=== PATIENT | female | born 1965 | race Caucasian/White ===

== ENCOUNTER 2019-08-12 07:37 | Day surgery (SDC) | payer BC ==
[2019-08-09 11:04] LABS: CARBON DIOXIDE,CO2 26.3 mmol/L (21.0-32.0); POTASSIUM,K 4.1 mmol/L (3.5-5.1)
[~2019-08-12 07:37] MED LIST: Glycopyrrolate 0.2 MG/ML SDV ONE; Ketorolac 30 MG/ML SDV ONE; Lactated Ringers 1,000 ML IV SCH; Lidocaine 2% 5 ML SDV ONE; Midazolam 1 MG/ML 2 ML SDV ONE; Ondansetron 4 MG/2 ML SDV ONE; Propofol 200 MG/20 ML SDV ONE; Rocuronium 100 MG/10 ML Syringe ONE; Sugammadex Sodium 200 MG/2 ML VIAL ONE; fentaNYL 250 MCG/5 ML SDV ONE
--- NOTE | 2019-08-12 08:10 | PCM.PREANE ---
Preanesthetic Assessment - Anesthesia/Transfusion/Family Hx Anesthesia History: Prior Anesthesia Without Reaction Other Type of Anesthesia Reaction Comment: States did have nausea and vomited on ride home from hospital after last OR Transfusion History: Prior Transfusion Without Reaction Intubation History: Unknown - Review of Systems General: No Symptoms Pulmonary: No Symptoms Cardiovascular: No Symptoms Gastrointestinal: No Symptoms Neurological: No Symptoms Other: Reports: None - Physical Assessment Height: 5 ft 8 in Weight: 119.748 kg - Lab Values: Laboratory Last Values WBC 4.94 K/uL (4.0-11.0) 08/09/19 09:55 RBC 4.31 M/uL (4.30-5.90) 08/09/19 09:55 Hgb 12.7 g/dL (12.0-16.0) 08/09/19 09:55 Hct 38.5 % (36.0-46.0) 08/09/19 09:55 MCV 89.3 fL (80.0-98.0) 08/09/19 09:55 MCH 29.5 pg (27.0-32.0) 08/09/19 09:55 MCHC 33.0 g/dL (31.0-37.0) 08/09/19 09:55 RDW Std Deviation 45.5 fl (28.0-62.0) 08/09/19 09:55 RDW Coeff of Oz 14 % (11.0-15.0) 08/09/19 09:55 Plt Count 214 K/uL (150-400) 08/09/19 09:55 MPV 11.40 fL (7.40-12.00) 08/09/19 09:55 Nucleated RBC % 0.0 /100WBC 08/09/19 09:55 Nucleated RBCs # 0 K/uL 08/09/19 09:55 Sodium 139 mmol/L (136-145) 08/09/19 09:55 Potassium 4.1 mmol/L (3.5-5.1) 08/09/19 09:55 Chloride 103 mmol/L (98-107) 08/09/19 09:55 Carbon Dioxide 26.3 mmol/L (21.0-32.0) 08/09/19 09:55 BUN 33 mg/dL (7.0-18.0) H 08/09/19 09:55 Creatinine 1.2 mg/dL (0.6-1.0) H 08/09/19 09:55 Est Cr Clr Drug Dosing 54.06 mL/min 08/09/19 09:55 Estimated GFR (MDRD) 46.8 ml/min 08/09/19 09:55 Glucose 110 mg/dL (74-106) H 08/09/19 09:55 Calcium 9.2 mg/dL (8.5-10.1) 08/09/19 09:55 HCG, Qual NEGATIVE (NEG) 08/09/19 09:55 SARS Virus RNA (PCR) NEGATIVE (NEGATIVE) 08/09/19 10:15 Blood Type O POSITIVE 08/09/19 09:55 Antibody Screen NEGATIVE 08/09/19 09:55 - Allergies Allergies/Adverse Reactions: Allergies Allergy/AdvReac Type Severity Reaction Status Date / Time No Known Allergies Allergy Verified 08/08/19 11:23 PreAnesthesia Questionnaire HEENT History: Reports: Other (See Below) Other HEENT History: wears glasses, has very dry eyes due to Lupus Cardiovascular History: Reports: Hypertension 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: Musculoskeletal History: Reports: Other (See Below) Other Musculoskeletal History: has Plantar Facitis Neurological History: Reports: Other (See Below) Other Neuro History: hx of motion sickness Psychiatric History: Reports: Depression Endocrine/Metabolic History: Reports: Hypothyroidism, Obesity/BMI 30+ Immunologic History: Reports: Other (See Below) Other Immunologic History: discoid Lupus Dermatologic History: Reports: Other (See Below) Other Dermatologic History: Discoid Lupus Erythematosus, hx of cold sores - Past Surgical History Head Surgeries/Procedures: Reports: None Female Surgical History: Reports: Other (See Below) Other Female Surgeries/Procedures: TOVT Neurological Surgical History: Reports: Lumbar Spine, Spinal Fusion Musculoskeletal Surgical History: Reports: ORIF Other Musculoskeletal Surgeries/Procedures:: right TIB-FIB (has hardware) - SUBSTANCE USE Smoking Status *Q: Never Smoker Recreational Drug Use History: No - HOME MEDS Home Medications: Home Meds Acyclovir 800 mg PO ASDIRECTED PRN 02/02/18 [History] Cholecalciferol (Vitamin D3) [Vitamin D3] 5,000 unit PO DAILY 02/02/18 [History] Escitalopram Oxalate 20 mg PO DAILY 02/02/18 [History] Lisinopril 10 mg PO QAM 02/02/18 [History] hydroCHLOROthiazide [Hydrochlorothiazide] 25 mg PO QAM 02/02/18 [History] Cream Base No. 9 [Hrt Base] 1 injection IM ASDIRECTED 08/08/19 [History] Cyanocobalamin (Vitamin B12) [Vitamin B12] 1,000 mg PO DAILY 08/08/19 [History] Levothyroxine [Synthroid] 50 mcg PO QAM 08/08/19 [History] [place]-3/DHA/Epa/Fish Oil [[place]-3 Fish Oil 1,200 MG Sfgl] 2,400 mg PO DAILY 06/23 [History] Progesterone,Micronized [Prometrium] 100 mg PO BEDTIME 08/08/19 [History] - CURRENT (IN HOUSE) MEDS Current Meds: Current Medications Lactated Ringer's (Ringers, Lactated) 1,000 mls @ 125 mls/hr IV ASDIRECTED SHIREEN Discontinued Medications Fentanyl (Sublimaze) Confirm Administered Dose 250 mcg .ROUTE .STK-MED ONE Stop: 08/12/19 07:03 Glycopyrrolate (Robinul) Confirm Administered Dose 0.2 mg .ROUTE .STK-MED ONE Stop: 08/12/19 07:03 Ketorolac Tromethamine (Toradol) Confirm Administered Dose 30 mg .ROUTE .STK- MED ONE Stop: 08/12/19 07:03 Lidocaine (Xylocaine-Mpf 2%) Confirm Administered Dose 5 ml .ROUTE .STK-MED ONE Stop: 08/12/19 07:03 Midazolam HCl (Versed 1 Mg/Ml) Confirm Administered Dose 2 mg .ROUTE .STK-MED ONE Stop: 08/12/19 07:03 Ondansetron HCl (Zofran) Confirm Administered Dose 4 mg .ROUTE .STK-MED ONE Stop: 08/12/19 07:03 Propofol (Diprivan 20 Ml) Confirm Administered Dose 200 mg .ROUTE .STK-MED ONE Stop: 08/12/19 07:03 Rocuronium Joanna (Zemuron) Confirm Administered Dose 100 mg .ROUTE .STK-MED ONE Stop: 08/12/19 07:03 Sugammadex Sodium (Bridion) Confirm Administered Dose 200 mg .ROUTE .STK-MED ONE Stop: 08/12/19 07:04
[2019-08-12] MEDS ORDERED: fentaNYL 100 MCG/2 ML SDV IVPUSH PRN (08:27)
[2019-08-12] MEDS ORDERED: Acetaminophen 1,000 MG in Premix Bag 1 BAG IV PRN (08:27)
--- NOTE | 2019-08-12 08:29 | PCM.PREANE ---
Preanesthetic Assessment - Anesthesia/Transfusion/Family Hx Anesthesia History: Prior Anesthesia Without Reaction Other Type of Anesthesia Reaction Comment: States did have nausea and vomited on ride home from hospital after last OR Family History of Anesthesia Reaction: No Transfusion History: Prior Transfusion Without Reaction Intubation History: Unknown - Physical Assessment NPO Status Date: 08/12/19 NPO Status Time: 00:05 Height: 1.73 m Weight: 119.748 kg ASA Class: 2 - Lab Values: Laboratory Last Values WBC 4.94 K/uL (4.0-11.0) 08/09/19 09:55 RBC 4.31 M/uL (4.30-5.90) 08/09/19 09:55 Hgb 12.7 g/dL (12.0-16.0) 08/09/19 09:55 Hct 38.5 % (36.0-46.0) 08/09/19 09:55 MCV 89.3 fL (80.0-98.0) 08/09/19 09:55 MCH 29.5 pg (27.0-32.0) 08/09/19 09:55 MCHC 33.0 g/dL (31.0-37.0) 08/09/19 09:55 RDW Std Deviation 45.5 fl (28.0-62.0) 08/09/19 09:55 RDW Coeff of Oz 14 % (11.0-15.0) 08/09/19 09:55 Plt Count 214 K/uL (150-400) 08/09/19 09:55 MPV 11.40 fL (7.40-12.00) 08/09/19 09:55 Nucleated RBC % 0.0 /100WBC 08/09/19 09:55 Nucleated RBCs # 0 K/uL 08/09/19 09:55 Sodium 139 mmol/L (136-145) 08/09/19 09:55 Potassium 4.1 mmol/L (3.5-5.1) 08/09/19 09:55 Chloride 103 mmol/L (98-107) 08/09/19 09:55 Carbon Dioxide 26.3 mmol/L (21.0-32.0) 08/09/19 09:55 BUN 33 mg/dL (7.0-18.0) H 08/09/19 09:55 Creatinine 1.2 mg/dL (0.6-1.0) H 08/09/19 09:55 Est Cr Clr Drug Dosing 54.06 mL/min 08/09/19 09:55 Estimated GFR (MDRD) 46.8 ml/min 08/09/19 09:55 Glucose 110 mg/dL (74-106) H 08/09/19 09:55 Calcium 9.2 mg/dL (8.5-10.1) 08/09/19 09:55 HCG, Qual NEGATIVE (NEG) 08/09/19 09:55 SARS Virus RNA (PCR) NEGATIVE (NEGATIVE) 08/09/19 10:15 Blood Type O POSITIVE 08/09/19 09:55 Antibody Screen NEGATIVE 08/09/19 09:55 - Allergies Allergies/Adverse Reactions: Allergies Allergy/AdvReac Type Severity Reaction Status Date / Time No Known Allergies Allergy Verified 08/08/19 11:23 - Acknowledgements Anesthesia Type Planned: General Anesthesia Pt an Appropriate Candidate for the Planned Anesthesia: Yes Alternatives and Risks of Anesthesia Discussed w Pt/Guardian: Yes Pt/Guardian Understands and Agrees with Anesthesia Plan: Yes PreAnesthesia Questionnaire HEENT History: Reports: Other (See Below) Other HEENT History: wears glasses, has very dry eyes due to Lupus Cardiovascular History: Reports: Hypertension 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: Musculoskeletal History: Reports: Other (See Below) Other Musculoskeletal History: has Plantar Facitis Neurological History: Reports: Other (See Below) Other Neuro History: hx of motion sickness Psychiatric History: Reports: Depression Endocrine/Metabolic History: Reports: Hypothyroidism, Obesity/BMI 30+ Immunologic History: Reports: Other (See Below) Other Immunologic History: discoid Lupus Dermatologic History: Reports: Other (See Below) Other Dermatologic History: Discoid Lupus Erythematosus, hx of cold sores - Past Surgical History Head Surgeries/Procedures: Reports: None Female Surgical History: Reports: Other (See Below) Other Female Surgeries/Procedures: TOVT Neurological Surgical History: Reports: Lumbar Spine, Spinal Fusion Musculoskeletal Surgical History: Reports: ORIF Other Musculoskeletal Surgeries/Procedures:: right TIB-FIB (has hardware) - SUBSTANCE USE Smoking Status *Q: Never Smoker Recreational Drug Use History: No - HOME MEDS Home Medications: Home Meds Acyclovir 800 mg PO ASDIRECTED PRN 02/02/18 [History] Cholecalciferol (Vitamin D3) [Vitamin D3] 5,000 unit PO DAILY 02/02/18 [History] Lisinopril 10 mg PO QAM 02/02/18 [History] hydroCHLOROthiazide [Hydrochlorothiazide] 25 mg PO QAM 02/02/18 [History] Cream Base No. 9 [Hrt Base] 1 injection IM ASDIRECTED 08/08/19 [History] Cyanocobalamin (Vitamin B12) [Vitamin B12] 1,000 mg PO DAILY 08/08/19 [History] Levothyroxine [Synthroid] 50 mcg PO QAM 08/08/19 [History] [place]-3/DHA/Epa/Fish Oil [[place]-3 Fish Oil 1,200 MG Sfgl] 2,400 mg PO DAILY 06/23 [History] Progesterone,Micronized [Prometrium] 100 mg PO BEDTIME 08/08/19 [History] - CURRENT (IN HOUSE) MEDS Current Meds: Current Medications Lactated Ringer's (Ringers, Lactated) 1,000 mls @ 125 mls/hr IV ASDIRECTED SHIREEN Discontinued Medications Fentanyl (Sublimaze) Confirm Administered Dose 250 mcg .ROUTE .STK-MED ONE Stop: 08/12/19 07:03 Glycopyrrolate (Robinul) Confirm Administered Dose 0.2 mg .ROUTE .STK-MED ONE Stop: 08/12/19 07:03 Ketorolac Tromethamine (Toradol) Confirm Administered Dose 30 mg .ROUTE .STK- MED ONE Stop: 08/12/19 07:03 Lidocaine (Xylocaine-Mpf 2%) Confirm Administered Dose 5 ml .ROUTE .STK-MED ONE Stop: 08/12/19 07:03 Midazolam HCl (Versed 1 Mg/Ml) Confirm Administered Dose 2 mg .ROUTE .STK-MED ONE Stop: 08/12/19 07:03 Ondansetron HCl (Zofran) Confirm Administered Dose 4 mg .ROUTE .STK-MED ONE Stop: 08/12/19 07:03 Propofol (Diprivan 20 Ml) Confirm Administered Dose 200 mg .ROUTE .STK-MED ONE Stop: 08/12/19 07:03 Rocuronium [place] (Zemuron) Confirm Administered Dose 100 mg .ROUTE .STK-MED ONE Stop: 08/12/19 07:03 Sugammadex Sodium (Bridion) Confirm Administered Dose 200 mg .ROUTE .STK-MED ONE Stop: 08/12/19 07:04
[2019-08-12] MEDS ORDERED: Sodium Chloride 0.9% 20 ML ONE (09:15)
[2019-08-12] MEDS ORDERED: ceFAZolin 1 GM Vial ONE (09:15)
[2019-08-12] MEDS ORDERED: HYDROmorphone 2 MG/ML Syringe ONE ×2 (10:04→11:28)
[2019-08-12] MEDS ORDERED: Fluorescein 5 ML Vial ONE (10:13)
[2019-08-12] MEDS ORDERED: Furosemide 40 MG/4 ML VIAL ONE (11:16)
[2019-08-12] MEDS ORDERED: Morphine 4 MG/ML Syringe IVPUSH PRN (12:07)
[2019-08-12] MEDS ORDERED: Promethazine 25 MG/ML SDV IM PRN (12:07)
[2019-08-12] MEDS ORDERED: Ondansetron 4 MG/2 ML SDV IVPUSH PRN (12:07)
[2019-08-12] MEDS ORDERED: Ketorolac 30 MG/ML SDV IVPUSH ONE (12:07)
[2019-08-12] MEDS ORDERED: Acetaminophen/oxyCODONE 325-5 MG Tab PO PRN ×2 (12:07)
--- NOTE | 2019-08-12 12:07 | PCM.OPNOTE ---
- General Post-Op/Procedure Note Date of Surgery/Procedure: 08/12/19 Operative Procedure(s): total vaginal hysterectomy with cystoscopy and anterior colporrhaphy. Findings: 3rd degree uterine prolapse, 3rd degree cystocele, cervical polyp. on cystoscopy , copious flow of bright green urine from bilateral ureteral orifices, no evidence of trauma to bladder mucosa. Pre Op Diagnosis: symptomatic uterovaginal prolapse. Post-Op Diagnosis: Same Primary Surgeon: Pauline Heard Anesthesia Provider: Oleg Pierce Acid Supervisor: Jose Enrique Jerez Pathology: uterus Fluid Replacement, Intraop: 1,900 Output, Urine Amount: 100 EBL in mLs: 100 Complications: None known. Condition: Good
[2019-08-12] MEDS ORDERED: Mineral Oil/Petrolatum Ophth Oint 3.5 GM Tube EYEBOTH PRN (12:11)
--- NOTE | 2019-08-12 12:34 | PCM.POSTAN ---
POST ANESTHESIA ASSESSMENT - MENTAL STATUS Mental Status: Alert - VITAL SIGNS Vital Signs: Last Vital Signs Temp 36.9 C 08/12/19 11:47 Pulse 77 08/12/19 12:17 Resp 12 08/12/19 12:17 BP 130/74 08/12/19 12:17 Pulse Ox 94 L 08/12/19 12:17 - RESPIRATORY Respiratory Status: Respiratory Rate WNL - CARDIOVASCULAR CV Status: Pulse Rate WNL - GASTROINTESTINAL GI Status: No Symptoms - POST OP HYDRATION Hydration Status: Adequate & Stable
--- NOTE | 2019-08-12 14:34 | OR ---
SURGEON: Pauline Heard M.D. DATE OF PROCEDURE: 08/12/2019 PREOPERATIVE DIAGNOSIS: Incomplete uterovaginal prolapse with cystocele. POSTOPERATIVE DIAGNOSIS: Incomplete uterovaginal prolapse with cystocele. PROCEDURE: Vaginal hysterectomy with anterior colporrhaphy. PRIMARY SURGEON: Pauline Heard MD SYSTEMS QA ANALYST: Lars Barger MD ANESTHESIA: General endotracheal. FLUIDS: 1700 mL of crystalloid. ESTIMATED BLOOD LOSS: 100 mL. URINE OUTPUT: 100 mL. FINDINGS: Third-degree uterine prolapse, third-degree cystocele. Endocervical polyp noted. Normal tubes and ovaries noted. On cystoscopy after IV fluorescein and Lasix had been given, there was copious flow of bright green urine from bilateral ureteral orifices. There was also no evidence of any trauma to the bladder mucosa. COMPLICATIONS: None known. DISPOSITION: Stable to Recovery. BRIEF HISTORY: This is a 54-year-old female. She has a history of a prior midurethral sling. She has noticed more difficulty with voiding as well as more urgency, a bulge coming from her vagina and pressure. Upon evaluation, she was noted to have a third-degree cystocele, third-degree uterine prolapse. She was emptying her bladder completely on postvoid residual, and she had normal bladder capacity, however, significant bladder spasms were noted. She desires to proceed with a vaginal hysterectomy retaining her tubes and ovaries as well as anterior colporrhaphy to correct the cystocele along with cystoscopy for evaluation of complications. Risks were discussed including bleeding; infection; injury to bowel, bladder, blood vessels, ureters, or other organs; risk of thromboembolic event; risk of anesthesia; risk related to the anterior colporrhaphy including new onset of stress incontinence as well as recurrence of 30% were discussed. Understanding all of these issues, she does desire to proceed. DESCRIPTION OF PROCEDURE: With the patient in dorsal lithotomy position, under adequate general endotracheal anesthesia, the perineum and vagina were prepped with Betadine and draped in usual fashion for a vaginal surgery. SCDs were in place. Castano catheter had been placed, and she received 2 g of Ancef IV preoperatively. After an appropriate time-out was held, bimanual examination revealed an 8-week size midposition uterus, third-degree cystocele, third-degree uterine prolapse with a large endocervical polyp. Weighted speculum was placed posteriorly. The cervix was grasped with a Angle tenaculum. The cervicovaginal junction was circumscribed using electrocautery. The vagina was pushed away. The posterior cul-de-sac was sharply entered. Kika-Auvard speculum was placed posteriorly. The anterior cul-de-sac was entered with sharp and blunt dissection and the right angle retractor was placed into the anterior cul-de-sac. The uterosacral ligaments were doubly clamped, cut, and ligated using a simple tie of 2-0 Polysorb followed by Abigail ligature of 2-0 Polysorb. The lower portion of the uterosacral ligaments was then doubly clamped, cut, and ligated using a simple ligature of 2-0 Polysorb followed by the Abigail ligature of 2-0 Polysorb. Two additional pedicles were taken on the right and the left until the utero-ovarian ligament was identified, doubly clamped, and cut. A free tie followed by a Abigail ligature of 2-0 Polysorb was utilized. These were retained for inspection. The uterus was delivered via the vaginal cavity. The retained tubes and ovaries appeared normal and there was no evidence of any bleeding from the pedicles. The sutures were then released. The retained uterosacral ligament ligatures were then ligated to the vaginal apices bilaterally. There was a small area of bleeding just above the right uterosacral ligament, which was clamped with a Abigail clamp and ligated. All the pedicles being completely hemostatic, the attention was then turned to the anterior vagina. Approximately 2 cm cephalad from the urethral meatus, an incision was made with a 15 blade scalpel after hydrodissection was performed. The anterior vaginal wall was opened through the muscularis layer and the edges of the mucosal layer were grasped with Allis clamps. The muscularis layer was dissected free from the overlying mucosal layer and then reapproximated in the midline using multiple interrupted mattress sutures of 2-0 Polysorb. The vaginal mucosa was slightly trimmed. The incision was closed using a running lock suture of 0 Polysorb proceeding from the apex of the anterior repair to the cuff. The cuff was then closed continuing with the same suture in a running locked fashion. The Castano catheter was then removed, and after all the instruments had been removed from the vagina, IV fluorescein and Lasix had been given. Cystoscopy was performed. There was excellent visualization of the bladder. There was no evidence of any trauma to the bladder mucosa and there was copious flow of bright green urine from bilateral ureteral orifices. This being completed, a new catheter was placed. Speculum was placed in the vagina. The cuff was hemostatic. The vagina was packed with vaginal packing instilled with water-based lubricant. Final sponge, needle, and instrument counts were reported as correct. There were no known complications. The patient was transferred to Recovery in good condition. ANETA / ALLEN /[id number]
[2019-08-12] MEDS ORDERED: Phenol 1.4% Oral Spray 177 ML Bottle MUCMEM PRN (17:14)
--- NOTE | 2019-08-12 17:14 | PCM.SURGPN ---
- General Info Date of Service: 08/12/19 Date of Surgery/Procedure: 08/12/19 POD#: 0 Post-Op Diagnosis: uterovaginal prolapse. Functional Status: Reports: Pain Controlled, Tolerating Diet - Review of Systems General: Reports: No Symptoms HEENT: Reports: No Symptoms Pulmonary: Reports: Other (O2 sats drop when she is dozing along with severe snoring, sleep apnea type symptoms. ) Cardiovascular: Reports: No Symptoms Gastrointestinal: Reports: No Symptoms Genitourinary: Reports: No Symptoms Musculoskeletal: Reports: No Symptoms Skin: Reports: No Symptoms Neurological: Reports: No Symptoms Psychiatric: Reports: No Symptoms - Patient Data Vitals - Most Recent: Last Vital Signs Temp 36.3 C 08/12/19 12:44 Pulse 75 08/12/19 12:44 Resp 15 08/12/19 12:44 BP 110/70 08/12/19 12:44 Pulse Ox 95 08/12/19 12:44 Weight - Most Recent: 119.748 kg I&O - Last 24 Hours: Intake & Output 08/12/19 08/12/19 08/12/19 06:59 14:59 22:59 Intake Total 3800 Output Total 400 Balance 3400 Med Orders - Current: Current Medications Hydrochlorothiazide (Hydrochlorothiazide) 25 mg PO QAM SHIREEN Lactated Ringer's (Ringers, Lactated) 1,000 mls @ 125 mls/hr IV ASDIRECTED SHIREEN Last Admin: 08/12/19 08:30 Dose: 125 mls/hr Acetaminophen 1,000 mg/ Premix 100 mls @ 400 mls/hr IV Q6H PRN PRN Reason: Pain Last Admin: 08/12/19 12:13 Dose: 400 mls/hr Ketorolac Tromethamine (Toradol) 15 mg IVPUSH Q6H PRN PRN Reason: Pain (severe 7-10) Stop: 08/17/19 12:07 Levothyroxine Sodium (Levothyroxine) 50 mcg PO ACBREAKFAST SHIREEN Lisinopril (Prinivil) 10 mg PO QAM [facility] Mineral Oil/White Petrolatum (Lacri-Lube S.O.P Oint) 1 gm EYEBOTH Q1H PRN PRN Reason: Dry Eyes Morphine Sulfate (Morphine) 4 mg IVPUSH Q2H PRN PRN Reason: Pain (severe 7-10) Ondansetron HCl (Zofran) 4 mg IVPUSH Q6H PRN PRN Reason: Nausea/Vomiting Oxycodone/Acetaminophen (Percocet 325-5 Mg) 1 tab PO Q4H PRN PRN Reason: Pain (moderate 4-6) Oxycodone/Acetaminophen (Percocet 325-5 Mg) 2 tab PO Q4H PRN PRN Reason: Pain (moderate 4-6) Promethazine HCl (Phenergan) 25 mg IM Q6H PRN PRN Reason: Nausea/Vomiting Discontinued Medications Cefazolin Sodium (Ancef) Confirm Administered Dose 2 gm .ROUTE .STK-MED ONE Stop: 08/12/19 09:16 Fentanyl (Sublimaze) Confirm Administered Dose 250 mcg .ROUTE .STK-MED ONE Stop: 08/12/19 07:03 Fentanyl (Sublimaze) 50 mcg IVPUSH Q5M PRN PRN Reason: Pain Fluorescein Sodium (Ak-Fluor) Confirm Administered Dose 5 ml .ROUTE .STK-MED ONE Stop: 08/12/19 10:14 Furosemide (Lasix) Confirm Administered Dose 40 mg .ROUTE .STK-MED ONE Stop: 08/12/19 11:17 Glycopyrrolate (Robinul) Confirm Administered Dose 0.2 mg .ROUTE .STK-MED ONE Stop: 08/12/19 07:03 Hydromorphone HCl (Dilaudid) Confirm Administered Dose 2 mg .ROUTE .STK-MED ONE Stop: 08/12/19 10:05 Hydromorphone HCl (Dilaudid) Confirm Administered Dose 2 mg .ROUTE .STK-MED ONE Stop: 08/12/19 11:29 Sodium Chloride (Normal Saline) Confirm Administered Dose 20 mls @ as directed .ROUTE .STK-MED ONE Stop: 08/12/19 09:16 Acetaminophen (Ofirmev) Confirm Administered Dose 100 mls @ as directed .ROUTE .STK-MED ONE Stop: 08/12/19 12:10 Ketorolac Tromethamine (Toradol) Confirm Administered Dose 30 mg .ROUTE .STK- MED ONE Stop: 08/12/19 07:03 Ketorolac Tromethamine (Toradol) 30 mg IVPUSH ONETIME ONE Stop: 08/12/19 12:08 Lidocaine (Xylocaine-Mpf 2%) Confirm Administered Dose 5 ml .ROUTE .STK-MED ONE Stop: 08/12/19 07:03 Midazolam HCl (Versed 1 Mg/Ml) Confirm Administered Dose 2 mg .ROUTE .STK-MED ONE Stop: 08/12/19 07:03 Ondansetron HCl (Zofran) Confirm Administered Dose 4 mg .ROUTE .[employer]-MED ONE Stop: 08/12/19 07:03 Propofol (Diprivan 20 Ml) Confirm Administered Dose 200 mg .ROUTE .STK-MED ONE Stop: 08/12/19 07:03 Rocuronium [place] (Zemuron) Confirm Administered Dose 100 mg .ROUTE .STJ [employer] R [place]-MED ONE Stop: 08/12/19 07:03 Sugammadex Sodium (Bridion) Confirm Administered Dose 200 mg .ROUTE .STJ & R [place]-MED ONE Stop: 08/12/19 07:04 - Exam General: Alert, Oriented HEENT: Pupils Equal Lungs: Clear to Auscultation, Normal Respiratory Effort Cardiovascular: Regular Rate, Regular Rhythm GI/Abdominal Exam: Soft, Non-Tender, No Mass Extremities: Non-Tender, No Pedal Edema Psy/Mental Status: Alert, Normal Affect, Normal Mood Sepsis Event Note - Focused Exam Vital Signs: Vital Signs Temp Pulse Resp BP Pulse Ox 08/12/19 12:44 36.3 C 75 15 110/70 95 08/12/19 12:17 77 12 130/74 94 L 08/12/19 12:12 74 12 126/74 94 L 08/12/19 12:07 82 12 107/77 95 08/12/19 12:02 86 13 107/72 96 08/12/19 11:57 79 12 117/74 93 L 08/12/19 11:52 80 12 108/61 95 08/12/19 11:47 36.9 C 81 16 116/42 L 94 L 08/12/19 08:00 36.6 C 98 15 107/74 96 Date Exam was Performed: 08/12/19 Time Exam was Performed: 17:09 - Problem List & Annotations (1) Incomplete uterovaginal prolapse SNOMED Code(s): 012006897 Code(s): N81.2 - INCOMPLETE UTEROVAGINAL PROLAPSE Status: Acute Current Visit: Yes (2) Sleep apnea in adult SNOMED Code(s): 35491885 Code(s): G47.30 - SLEEP APNEA, UNSPECIFIED Status: Acute Current Visit: Yes (3) Hypertension SNOMED Code(s): 79511202 Code(s): I10 - ESSENTIAL (PRIMARY) HYPERTENSION Status: Acute Current Visit: Yes Qualifiers: Hypertension type: essential hypertension Qualified Code(s): I10 - Essential (primary) hypertension - Problem List Review Problem List Initiated/Reviewed/Updated: Yes - My Orders Last 24 Hours: Active Orders 24 hr Category Date Time Status Patient Status [ADT] Routine ADT 08/12/19 12:07 Active Antiembolic Devices [RC] PER UNIT ROUTINE Care 08/12/19 06:25 Active Antiembolic Devices [RC] PER UNIT ROUTINE Care 08/12/19 12:08 Active CPAP Adult [RT BiPAP/CPAP] [RC] ASDIRECTED Care 08/12/19 15:10 Active Notify Provider Intake and Out [RC] ASDIRECTED Care 08/12/19 12:07 Active Notify Provider Vital Signs [RC] ASDIRECTED Care 08/12/19 12:07 Active Overnight Pulse Oximetry [RC] Click to Edit Care 08/12/19 14:23 Active Oxygen Therapy [RC] ASDIRECTED Care 08/12/19 12:07 Active RT End Tidal CO2 Monitoring [RC] ASDIRECTED Care 08/12/19 14:24 Active RT Incentive Spirometry [RC] Q2HWA Care 08/12/19 12:07 Active Up With Assistance [RC] PER UNIT ROUTINE Care 08/12/19 12:07 Active Up ad [place] [RC] PER UNIT ROUTINE Care 08/12/19 12:07 Active Urinary Catheter Removal [RC] Per Unit Routine Care 08/12/19 12:07 Active Vital Signs [RC] PER UNIT ROUTINE Care 08/12/19 12:07 Active Regular Diet [DIET] Diet 08/12/19 Dinner Active BASIC METABOLIC PANEL,BMP [CHEM] AM Lab 08/13/19 05:11 Ordered CBC WITH AUTO DIFF [HEME] AM Lab 08/13/19 05:11 Ordered Acetaminophen [Ofirmev] 1,000 mg Med 08/12/19 08:27 Active Premix Bag 1 bag IV Q6H Acetaminophen/oxyCODONE [Percocet 325-5 MG] Med 08/12/19 12:07 Active 1 tab PO Q4H PRN Acetaminophen/oxyCODONE [Percocet 325-5 MG] Med 08/12/19 12:07 Active 2 tab PO Q4H PRN Ketorolac [Toradol] Med 08/12/19 12:07 Active 15 mg IVPUSH Q6H PRN Lactated Ringers [Ringers, Lactated] 1,000 ml Med 08/12/19 06:30 Active IV ASDIRECTED Levothyroxine Med 08/13/19 07:30 Active 50 mcg PO ACBREAKFAST Mineral Oil/Petrolatum Oint [Lacri-Lube S.O.P Oint] Med 08/12/19 12:11 Active 1 gm EYEBOTH Q1H PRN Morphine Med 08/12/19 12:07 Active 4 mg IVPUSH Q2H PRN Ondansetron [Zofran] Med 08/12/19 12:07 Active 4 mg IVPUSH Q6H PRN Promethazine [Phenergan] Med 08/12/19 12:07 Active 25 mg IM Q6H PRN hydroCHLOROthiazide Med 08/13/19 09:00 Active 25 mg PO QAM lisinopriL [Prinivil] Med 08/13/19 09:00 Active 10 mg PO QAM Peripheral IV Discontinue [OM.PC] Routine Oth 08/12/19 12:07 Ordered Pulse Oximetry Continuous Monitoring [OM.PC] Routine Oth 08/12/19 14:23 Ordered Remove Vaginal Packing [OM.PC] Per Unit Routine Oth 08/12/19 12:08 Ordered SCD [Sequential Compression Device] [OM.PC] Routine Oth 08/12/19 06:25 Ordered Sequential Compression Device [OM.PC] Per Unit Routine Oth 08/12/19 12:07 Ordered Resuscitation Status Routine Resus Stat 08/12/19 12:07 Ordered Medication Orders Hydrochlorothiazide (Hydrochlorothiazide) 25 mg PO QAM SHIREEN Lactated Ringer's (Ringers, Lactated) 1,000 mls @ 125 mls/hr IV ASDIRECTED SHIREEN Last Admin: 08/12/19 08:30 Dose: 125 mls/hr Acetaminophen 1,000 mg/ Premix 100 mls @ 400 mls/hr IV Q6H PRN PRN Reason: Pain Last Admin: 08/12/19 12:13 Dose: 400 mls/hr Ketorolac Tromethamine (Toradol) 15 mg IVPUSH Q6H PRN PRN Reason: Pain (severe 7-10) Stop: 08/17/19 12:07 Levothyroxine Sodium (Levothyroxine) 50 mcg PO ACBREAKFAST SHIREEN Lisinopril (Prinivil) 10 mg PO QAM SHIREEN Mineral Oil/White Petrolatum (Lacri-Lube S.O.P Oint) 1 gm EYEBOTH Q1H PRN PRN Reason: Dry Eyes Morphine Sulfate (Morphine) 4 mg IVPUSH Q2H PRN PRN Reason: Pain (severe 7-10) Ondansetron HCl (Zofran) 4 mg IVPUSH Q6H PRN PRN Reason: Nausea/Vomiting Oxycodone/Acetaminophen (Percocet 325-5 Mg) 1 tab PO Q4H PRN PRN Reason: Pain (moderate 4-6) Oxycodone/Acetaminophen (Percocet 325-5 Mg) 2 tab PO Q4H PRN PRN Reason: Pain (moderate 4-6) Promethazine HCl (Phenergan) 25 mg IM Q6H PRN PRN Reason: Nausea/Vomiting - Assessment Assessment (Free Text/Narrative):: POD#1 after TVH anterior colporrhaphy, Pain is adequately controlled, she denies any shortness of breath or chest pain, however Oxygen levels drop to the 70s when sleeping, vital are stable, no cough or dyspnea. Oxygen saturation is normal when awake and alert, did not tolerate CPAP due to sore throat from intubation. - Plan Plan (Free Text/Narrative):: Continue CPAP for sleeping, continuous pulse oxymetry, will schedule sleep study for out patient (Passed [facility] questionnaire) Use heating pad and low dose ketorolac for pain (cr slightly elevated on admission) Continue postop op care Operative findings reviewed
[2019-08-12] MEDS: Ketorolac 30 MG/ML SDV IVPUSH PRN (17:50)
[2019-08-13] MEDS: Ketorolac 30 MG/ML SDV IVPUSH PRN ×2 (01:03→09:17)
[2019-08-13 06:15] LABS: CARBON DIOXIDE,CO2 28.1 mmol/L (21.0-32.0); POTASSIUM,K 3.8 mmol/L (3.5-5.1)
[2019-08-13] MEDS ORDERED: Levothyroxine 25 MCG Tab PO SCH (07:30)
--- NOTE | 2019-08-13 07:45 | PCM48HPAN ---
Post Anesthesia Note - EVALUATION WITHIN 48HRS OF ANESTHETIC Vital Signs in Normal Range: Yes Patient Participated in Evaluation: Yes Respiratory Function Stable: Yes Airway Patent: Yes Cardiovascular Function Stable: Yes Hydration Status Stable: Yes Pain Control Satisfactory: Yes Nausea and Vomiting Control Satisfactory: Yes Mental Status Recovered: Yes Vital Signs: Last Vital Signs Temp 36.4 C 08/13/19 04:00 Pulse 84 08/13/19 04:00 Resp 16 08/13/19 04:00 BP 119/56 L 08/13/19 04:00 Pulse Ox 98 08/13/19 06:00 - COMMENTS/OBSERVATIONS Free Text/Narrative:: Denies any complaints. O2 sats 95-96% on RA. States could not tolerate CPAP but feeling better today.
[2019-08-13] MEDS ORDERED: Docusate Sodium 100 MG Cap PO PRN (07:55)
[2019-08-13] MEDS ORDERED: Lisinopril 10 MG Tab PO SCH (09:00)
[2019-08-13] MEDS ORDERED: Hydrochlorothiazide 25 MG Tab PO SCH (09:00)
--- NOTE | 2019-08-13 09:05 | PCM.SURGPN ---
- General Info Date of Service: 08/13/19 Date of Surgery/Procedure: 08/12/19 POD#: 1 Post-Op Diagnosis: incomplete uterovaginal prolapse Functional Status: Reports: Pain Controlled, Tolerating Diet, Ambulating, Urinating, Other (slept well without CPAP) - Review of Systems General: Reports: No Symptoms HEENT: Reports: No Symptoms Pulmonary: Reports: No Symptoms Cardiovascular: Reports: No Symptoms Gastrointestinal: Reports: No Symptoms Genitourinary: Reports: No Symptoms Musculoskeletal: Reports: No Symptoms Skin: Reports: No Symptoms Neurological: Reports: No Symptoms Psychiatric: Reports: No Symptoms - Patient Data Vitals - Most Recent: Last Vital Signs Temp 36.4 C 08/13/19 04:00 Pulse 84 08/13/19 04:00 Resp 16 08/13/19 04:00 BP 119/56 L 08/13/19 04:00 Pulse Ox 98 08/13/19 06:00 Weight - Most Recent: 119.748 kg Lab Results Last 24 Hrs: Laboratory Results - last 24 hr 08/13/19 08/13/19 Range/Units 05:38 05:38 WBC 9.56 (4.0-11.0) K/uL RBC 3.83 L (4.30-5.90) M/uL Hgb 11.3 L (12.0-16.0) g/dL Hct 34.7 L (36.0-46.0) % MCV 90.6 (80.0-98.0) fL MCH 29.5 (27.0-32.0) pg MCHC 32.6 (31.0-37.0) g/dL RDW Std Deviation 45.6 (28.0-62.0) fl RDW Coeff of Oz 14 (11.0-15.0) % Plt Count 166 (150-400) K/uL MPV 11.30 (7.40-12.00) fL Neut % (Auto) 79.0 (48.0-80.0) % Lymph % (Auto) 13.3 L (16.0-40.0) % [place] % (Auto) 7.4 (0.0-15.0) % Eos % (Auto) 0.2 (0.0-7.0) % Baso % (Auto) 0.1 (0.0-1.5) % Neut # (Auto) 7.6 H (1.4-5.7) K/uL Lymph # (Auto) 1.3 (0.6-2.4) K/uL [place] # (Auto) 0.7 (0.0-0.8) K/uL Eos # (Auto) 0.0 (0.0-0.7) K/uL Baso # (Auto) 0.0 (0.0-0.1) K/uL Nucleated RBC % 0.0 /100WBC Nucleated RBCs # 0 K/uL Sodium 137 (136-145) mmol/L Potassium 3.8 (3.5-5.1) mmol/L Chloride 102 (98-107) mmol/L Carbon Dioxide 28.1 (21.0-32.0) mmol/L BUN 28 H (7.0-18.0) mg/dL Creatinine 1.3 H (0.6-1.0) mg/dL Est Cr Clr Drug Dosing 49.90 mL/min Estimated GFR (MDRD) 42.7 ml/min Glucose 116 H (74-106) mg/dL Calcium 7.7 L (8.5-10.1) mg/dL Med Orders - Current: Current Medications Docusate Sodium (Colace) 100 mg PO BID PRN PRN Reason: Constipation Hydrochlorothiazide (Hydrochlorothiazide) 25 mg PO QAM [facility] Lactated Ringer's (Ringers, Lactated) 1,000 mls @ 125 mls/hr IV ASDIRECTED SHIREEN Last Admin: 08/12/19 08:30 Dose: 125 mls/hr Acetaminophen 1,000 mg/ Premix 100 mls @ 400 mls/hr IV Q6H PRN PRN Reason: Pain Last Admin: 08/12/19 12:13 Dose: 400 mls/hr Ketorolac Tromethamine (Toradol) 15 mg IVPUSH Q6H PRN PRN Reason: Pain (severe 7-10) Stop: 08/17/19 12:07 Last Admin: 08/13/19 01:03 Dose: 15 mg Levothyroxine Sodium (Levothyroxine) 50 mcg PO ACBREAKFAST [facility] Lisinopril (Prinivil) 10 mg PO QAM [facility] Mineral Oil/White Petrolatum (Lacri-Lube S.O.P Oint) 1 gm EYEBOTH Q1H PRN PRN Reason: Dry Eyes Morphine Sulfate (Morphine) 4 mg IVPUSH Q2H PRN PRN Reason: Pain (severe 7-10) Ondansetron HCl (Zofran) 4 mg IVPUSH Q6H PRN PRN Reason: Nausea/Vomiting Oxycodone/Acetaminophen (Percocet 325-5 Mg) 1 tab PO Q4H PRN PRN Reason: Pain (moderate 4-6) Oxycodone/Acetaminophen (Percocet 325-5 Mg) 2 tab PO Q4H PRN PRN Reason: Pain (moderate 4-6) Phenol/Menthol (Chloraseptic Throat [place]) 0 ml MUCMEM Q2H PRN PRN Reason: sore throat Promethazine HCl (Phenergan) 25 mg IM Q6H PRN PRN Reason: Nausea/Vomiting Discontinued Medications Cefazolin Sodium (Ancef) Confirm Administered Dose 2 gm .ROUTE .STK-MED ONE Stop: 08/12/19 09:16 Fentanyl (Sublimaze) Confirm Administered Dose 250 mcg .ROUTE .STK-MED ONE Stop: 08/12/19 07:03 Fentanyl (Sublimaze) 50 mcg IVPUSH Q5M PRN PRN Reason: Pain Fluorescein Sodium (Ak-Fluor) Confirm Administered Dose 5 ml .ROUTE .STK-MED ONE Stop: 08/12/19 10:14 Furosemide (Lasix) Confirm Administered Dose 40 mg .ROUTE .STK-MED ONE Stop: 08/12/19 11:17 Glycopyrrolate (Robinul) Confirm Administered Dose 0.2 mg .ROUTE .STK-MED ONE Stop: 08/12/19 07:03 Hydromorphone HCl (Dilaudid) Confirm Administered Dose 2 mg .ROUTE .STK-MED ONE Stop: 08/12/19 10:05 Hydromorphone HCl (Dilaudid) Confirm Administered Dose 2 mg .ROUTE .STK-MED ONE Stop: 08/12/19 11:29 Sodium Chloride (Normal Saline) Confirm Administered Dose 20 mls @ as directed .ROUTE .STK-MED ONE Stop: 08/12/19 09:16 Acetaminophen (Ofirmev) Confirm Administered Dose 100 mls @ as directed .ROUTE .STK-MED ONE Stop: 08/12/19 12:10 Ketorolac Tromethamine (Toradol) Confirm Administered Dose 30 mg .ROUTE .STK- MED ONE Stop: 08/12/19 07:03 Ketorolac Tromethamine (Toradol) 30 mg IVPUSH ONETIME ONE Stop: 08/12/19 12:08 Last Admin: 08/12/19 20:12 Dose: Not Given Lidocaine (Xylocaine-Mpf 2%) Confirm Administered Dose 5 ml .ROUTE .STK-MED ONE Stop: 08/12/19 07:03 Midazolam HCl (Versed 1 Mg/Ml) Confirm Administered Dose 2 mg .ROUTE .STK-MED ONE Stop: 08/12/19 07:03 Ondansetron HCl (Zofran) Confirm Administered Dose 4 mg .ROUTE .STK-MED ONE Stop: 08/12/19 07:03 Propofol (Diprivan 20 Ml) Confirm Administered Dose 200 mg .ROUTE .STK-MED ONE Stop: 08/12/19 07:03 Rocuronium [place] (Zemuron) Confirm Administered Dose 100 mg .ROUTE .STK-MED ONE Stop: 08/12/19 07:03 Sugammadex Sodium (Bridion) Confirm Administered Dose 200 mg .ROUTE .STK-MED ONE Stop: 08/12/19 07:04 - Exam General: Alert HEENT: Pupils Equal Neck: Supple Lungs: Clear to Auscultation, Normal Respiratory Effort Cardiovascular: Regular Rate, Regular Rhythm GI/Abdominal Exam: Normal Bowel Sounds, Soft, Non-Tender, No Distention Extremities: Non-Tender, No Pedal Edema Skin: Warm, Dry, Intact Neurological: No New Focal Deficit Psy/Mental Status: Alert Sepsis Event Note - Evaluation Sepsis Screening Result: No Definite Risk - Focused Exam Vital Signs: Vital Signs Temp Pulse Resp BP Pulse Ox 08/13/19 06:00 98 08/13/19 05:00 95 08/13/19 04:00 36.4 C 84 16 119/56 L 97 08/13/19 03:00 98 08/13/19 02:00 93 L 08/13/19 01:00 96 08/13/19 00:00 37.6 C 91 18 119/72 94 L 08/12/19 23:00 95 Date Exam was Performed: 08/13/19 Time Exam was Performed: 09:01 - Problem List & Annotations (1) Incomplete uterovaginal prolapse SNOMED Code(s): 272619160 Code(s): N81.2 - INCOMPLETE UTEROVAGINAL PROLAPSE Status: Acute Current Visit: Yes (2) Sleep apnea in adult SNOMED Code(s): 90832560 Code(s): G47.30 - SLEEP APNEA, UNSPECIFIED Status: Acute Current Visit: Yes (3) Hypertension SNOMED Code(s): 30365244 Code(s): I10 - ESSENTIAL (PRIMARY) HYPERTENSION Status: Acute Current Visit: Yes Qualifiers: Hypertension type: essential hypertension Qualified Code(s): I10 - Essential (primary) hypertension - Problem List Review Problem List Initiated/Reviewed/Updated: Yes - My Orders Last 24 Hours: Active Orders 24 hr Category Date Time Status Patient Status [ADT] Routine ADT 08/12/19 12:07 Active CPAP Adult [RT BiPAP/CPAP] [RC] ASDIRECTED Care 08/12/19 15:10 Active Notify Provider Intake and Out [RC] ASDIRECTED Care 08/12/19 12:07 Active Notify Provider Vital Signs [RC] ASDIRECTED Care 08/12/19 12:07 Active Oxygen Therapy [RC] ASDIRECTED Care 08/12/19 12:07 Active RT End Tidal CO2 Monitoring [RC] ASDIRECTED Care 08/12/19 14:24 Active RT Incentive Spirometry [RC] Q2HWA Care 08/12/19 12:07 Active Telemetry Monitoring [Cardiac Monitoring] [RC] Q8H Care 08/12/19 15:43 Active Up With Assistance [RC] PER UNIT ROUTINE Care 08/12/19 12:07 Active Up ad Ulcero [RC] PER UNIT ROUTINE Care 08/12/19 12:07 Active Urinary Catheter Removal [RC] Per Unit Routine Care 08/12/19 12:07 Active Vital Signs [RC] PER UNIT ROUTINE Care 08/12/19 12:07 Active Regular Diet [DIET] Diet 08/12/19 Dinner Active Acetaminophen [Ofirmev] 1,000 mg Med 08/12/19 08:27 Active Premix Bag 1 bag IV Q6H Acetaminophen/oxyCODONE [Percocet 325-5 MG] Med 08/12/19 12:07 Active 1 tab PO Q4H PRN Acetaminophen/oxyCODONE [Percocet 325-5 MG] Med 08/12/19 12:07 Active 2 tab PO Q4H PRN Docusate Sodium [Colace] Med 08/13/19 07:55 Active 100 mg PO BID PRN Ketorolac [Toradol] Med 08/12/19 12:07 Active 15 mg IVPUSH Q6H PRN Levothyroxine Med 08/13/19 07:30 Active 50 mcg PO ACBREAKFAST Mineral Oil/Petrolatum Oint [Lacri-Lube S.O.P Oint] Med 08/12/19 12:11 Active 1 gm EYEBOTH Q1H PRN Morphine Med 08/12/19 12:07 Active 4 mg IVPUSH Q2H PRN Ondansetron [Zofran] Med 08/12/19 12:07 Active 4 mg IVPUSH Q6H PRN Phenol [Chloraseptic Throat [place]] Med 08/12/19 17:14 Active 0 ml MUCMEM Q2H PRN Promethazine [Phenergan] Med 08/12/19 12:07 Active 25 mg IM Q6H PRN hydroCHLOROthiazide Med 08/13/19 09:00 Active 25 mg PO QAM lisinopriL [Prinivil] Med 08/13/19 09:00 Active 10 mg PO QAM Peripheral IV Discontinue [OM.PC] Routine Oth 08/12/19 12:07 Ordered Pulse Oximetry Continuous Monitoring [OM.PC] Routine Oth 08/12/19 14:23 Ordered Remove Vaginal Packing [OM.PC] Per Unit Routine Oth 08/12/19 12:08 Ordered Sequential Compression Device [OM.PC] Per Unit Routine Oth 08/12/19 12:07 Ordered Resuscitation Status Routine Resus Stat 08/12/19 12:07 Ordered Medication Orders Docusate Sodium (Colace) 100 mg PO BID PRN PRN Reason: Constipation Hydrochlorothiazide (Hydrochlorothiazide) 25 mg PO QAM SHIREEN Lactated Ringer's (Ringers, Lactated) 1,000 mls @ 125 mls/hr IV ASDIRECTED SHIREEN Last Admin: 08/12/19 08:30 Dose: 125 mls/hr Acetaminophen 1,000 mg/ Premix 100 mls @ 400 mls/hr IV Q6H PRN PRN Reason: Pain Last Admin: 08/12/19 12:13 Dose: 400 mls/hr Ketorolac Tromethamine (Toradol) 15 mg IVPUSH Q6H PRN PRN Reason: Pain (severe 7-10) Stop: 08/17/19 12:07 Last Admin: 08/13/19 01:03 Dose: 15 mg Admin: 08/12/19 17:50 Dose: 15 mg Levothyroxine Sodium (Levothyroxine) 50 mcg PO ACBREAKFAST SHIREEN Lisinopril (Prinivil) 10 mg PO QAM SHIREEN Mineral Oil/White Petrolatum (Lacri-Lube S.O.P Oint) 1 gm EYEBOTH Q1H PRN PRN Reason: Dry Eyes Morphine Sulfate (Morphine) 4 mg IVPUSH Q2H PRN PRN Reason: Pain (severe 7-10) Ondansetron HCl (Zofran) 4 mg IVPUSH Q6H PRN PRN Reason: Nausea/Vomiting Oxycodone/Acetaminophen (Percocet 325-5 Mg) 1 tab PO Q4H PRN PRN Reason: Pain (moderate 4-6) Oxycodone/Acetaminophen (Percocet 325-5 Mg) 2 tab PO Q4H PRN PRN Reason: Pain (moderate 4-6) Phenol/Menthol (Chloraseptic Throat [place]) 0 ml MUCMEM Q2H PRN PRN Reason: sore throat Promethazine HCl (Phenergan) 25 mg IM Q6H PRN PRN Reason: Nausea/Vomiting - Assessment Assessment (Free Text/Narrative):: POD#1 after total vaginal hysterectomy with anterior colporrhaphy. Pain is well controlled, ambulating urinating, ready for discharge Sleep apnea. She was unable to tolerate CPAP last night however her oxygen saturations were improved after anesthetic medications wore off. Hypertension well controlled on current medication. Will follow up with PCP regarding mildly elevated preop Creatinine. - Plan Plan (Free Text/Narrative):: Discharge instructions reviewed, discussed precautions against prolonged use of NSAIDS due to elevated creatinine Will schedule outpatient sleep study. Continue outpatient medications.
[2019-08-13] MEDS ORDERED: Hydrochlorothiazide 12.5 MG Cap PO SCH (11:00)
== END 2019-08-13 13:39 | disposition home or self-care (01) ==
LOC: MW.SDS 07:37 → MW.OB 12:20 → MW.SDS 08-13 13:39
PROVIDERS: ATTEND Obstetrics & Gynecology
DX: N85.00 Endometrial hyperplasia, unspecified (principal); R32 Unspecified urinary incontinence; I10 Essential (primary) hypertension; E03.9 Hypothyroidism, unspecified; E66.9 Obesity, unspecified; Z79.899 Other long term (current) drug therapy; Z96.0 Presence of urogenital implants; Z68.41 Body mass index [BMI] 40.0-44.9, adult
CPT/HCPCS: 36415; 58260; 80048; 84703; 85025; 85027; 86850; 86900; 86901; 87635; 88307; 94660; A9270; J0131; J0690; J1170; J1885; J1940; J2001; J2250; J2405; J2704; J3010; J3490; J7120; 00944; U0002